=== PATIENT | male | born 1970 | race Caucasian/White ===

== ENCOUNTER 2021-06-10 15:36 | Emergency (ER) | payer MEDICAID ==
[~2021-06-10] VITALS: Ht 162.6 cm; Wt 85.3 kg
[2021-06-10 15:38] VITALS: BP 147/79
--- NOTE | 2021-06-10 15:58 | NUR ---
51 Y MALE WITH C/O LOWER BACK PAIN X 4 DAYS THAT RADIATES DOWN HIS LEG AND UP HIS MID-BACK. PT STATED HE FELL X4 DAYS AGO, BUT DENIES HITTING HIS HEAD. PT STATED PAIN IS 8/10 AND IS THROBBING LIKE PAIN. PT DENIES ANY N/V, CHEST PAIN, SOB AT THIS TIME. PT IS ABLE TO MOVE HIS FEET AND AMBULATE ON HIS OWN PMH: DENIES NKA
--- NOTE | 2021-06-10 15:58 | NUR ---
DR. VASQUEZ BEDSIDE EVALUATING PT
[2021-06-10] MEDS: KETOROLAC 60 MG/2 ML VIAL IM ONE (16:18)
[2021-06-10] MEDS ORDERED: IBUP-2213 PO (16:28)
== END 2021-06-10 16:34 | disposition home or self-care (01) ==
LOC: MED 15:36
DX: M54.59 Other low back pain (principal)
CPT/HCPCS: 81002; 96372; 99283; J1885

== ENCOUNTER 2022-01-31 22:15 | Emergency (ER) | payer MEDICAID ==
[~2022-01-31] VITALS: Ht 167.6 cm; Wt 69.9 kg
[~2022-01-31 22:15] MED LIST: IBUP-2213 PO
[2022-01-31 22:16] VITALS: BP 156/96
--- NOTE | 2022-01-31 22:21 | NUR ---
TO LOBBY FOLLOWING TRIAGE
--- NOTE | 2022-01-31 23:27 | NUR ---
LABS BEING DRAWN, UA SENT
[2022-01-31 23:40] LABS: BASOPHILS % (AUTO) 0.5 % (0.0-2.0); EOSINOPHILS # (AUTO) 0.1 K/uL (0-0.4); EOSINOPHILS % (AUTO) 0.8 % (0.0-4.0); HEMOGLOBIN 14.8 g/dL (12.0-18.0); LYMPHOCYTES % (AUTO) 35.4 % (20.5-51.1); MEAN CORPUSCULAR HEMOGLOBIN 32 pg (27-31); MEAN CORPUSCULAR HGB CONC 35 g/dL (33-37); MEAN CORPUSCULAR VOLUME 91.5 fL (80-94); MONOCYTES # (AUTO) 0.9 K/uL (0.8-1.0); MONOCYTES % (AUTO) 10.7 % (1.7-9.3); NEUTROPHILS # (AUTO) 4.5 K/uL (1.8-7.7); NEUTROPHILS % (AUTO) 52.6 % (42.2-75.2); PLATELET COUNT (AUTO) 254 K/uL (140-450); RED BLOOD CELL COUNT(AUTO) 4.59 MIL/uL (4.20-6.10); RED CELL DISTRIBUTION WIDTH 13.9 % (11.6-13.7); WHITE BLOOD COUNT (AUTO) 8.5 K/uL (4.8-10.8)
[2022-01-31 23:45] LABS: APPEARANCE,URINE CLEAR (CLEAR); BILIRUBIN,URINE NEGATIVE (NEGATIVE); BLOOD, URINE NEGATIVE (NEGATIVE); COLOR,URINE YELLOW (YELLOW); LEUKOCYTE ESTERASE ,URINE NEGATIVE (NEGATIVE); NITRITE, URINE NEGATIVE (NEGATIVE); PH,URINE 6.5 (5.0-9.0); UGLUCOSE NEGATIVE (NEGATIVE)
--- NOTE | 2022-01-31 23:50 | NUR ---
PT AMBULATED TO BED #1
[2022-02-01 00:03] LABS: ALBUMIN 3.8 g/dL (3.4-5.0); ANION GAP 7.7 (8-16); CARBON DIOXIDE 29.9 mmol/L (21-32); CREATININE 0.8 mg/dL (0.6-1.3); POTASSIUM 3.6 mmol/L (3.5-5.1); TOTAL BILIRUBIN 0.4 mg/dL (0.0-1.0)
--- NOTE | 2022-02-01 00:28 | NUR ---
PATIENT EVALED BY ER MD FOR POSSIBLE SCIATIC PAIN TO RIGHT LEG. PAIN AND TENDERNESS LOCATED AT RIGHT LUMBER SPINE.
[2022-02-01] MEDS ORDERED: NAPR-54 PO (01:16)
[2022-02-01] MEDS ORDERED: DIAZ5TAB6 PO (01:16)
[2022-02-01 01:36] VITALS: BP 158/58
== END 2022-02-01 01:30 | disposition home or self-care (01) ==
LOC: MED 22:15
DX: M54.41 Lumbago with sciatica, right side (principal); Z79.1 Long term (current) use of non-steroidal anti-inflammatories (NSAID)
CPT/HCPCS: 36415; 80053; 81003; 83690; 85025; 99284